=== PATIENT | female | born 1965 | race Caucasian/White ===

== ENCOUNTER → 2019-08-06 11:38 | Outpatient (CLI) | payer OTHER, SELFPAY ==
--- NOTE | ~2019-08-06 | MM_ITS ---
EXAMINATION: MM scrn maite implant BI w litzy HISTORY: Screening mammogram TECHNIQUE: Craniocaudal and mediolateral oblique 3-D tomosynthesis images with implant displacement a nd synthetic 2-D images were generated. Craniocaudal and mediolateral oblique views of the breasts wi thout implant displacement were obtained using full field digital mammography. CAD analysis was submi tted and interpreted. COMPARISON: 03/24/2017, 10/22/2015, 04/09/2014 BREAST PARENCHYMAL COMPOSITION: There are scattered areas of fibroglandular density. FINDINGS: The stable asymmetry is noted in the subareolar aspect of the right breast on the mediolate ral oblique view. There is no evidence of suspicious mass, calcification, or architectural distortion to suggest malignancy in either breast. There has been no suspicious interval change. IMPRESSION: 1. No mammographic evidence of malignancy. 2. Recommend routine screening mammography in one year. BI-RADS Category 2: Benign finding(s). Reviewed, dictated and finalized at location A.
== END ==
DX: Z12.31 Encounter for screening mammogram for malignant neoplasm of breast (principal)
CPT/HCPCS: 77063; 77067

== ENCOUNTER → 2020-03-03 13:02 | Outpatient (REF) | payer OTHER, SELFPAY | LOC: ANHLAB 13:02 | PROVIDERS: Visit Provider Nurse Practitioner | DX: D49.2 Neoplasm of unspecified behavior of bone, soft tissue, and skin (principal) | CPT/HCPCS: 88305; 88342 ==

== ENCOUNTER 2021-07-21 09:06 | Outpatient (CLI) | payer OTHER, SELFPAY ==
--- NOTE | ~2021-07-21 | US_ITS ---
US renal BI 07/21/2021 09:33 Procedure: Realtime transabdominal ultrasound of the kidneys and bladder. Indication: Hypertension Comparison: No prior studies for comparison. Findings: Renal echotexture is normal bilaterally without hydronephrosis, contour deforming mass or r enal calculus. The right kidney measures 9.4 cm and left kidney measures 10.3 cm. Bladder within nor mal limits. Impression: 1: Unremarkable renal ultrasound. No stones, masses or hydronephrosis. Reviewed, dictated and finalized at location B. ENTATION OPERATOR Impression: 1: Unremarkable renal ultrasound. No stones, masses or hydronephrosis.
== END 2021-07-21 09:07 | disposition home or self-care (01) ==
LOC: ANHIMG 09:08
PROVIDERS: PCP Internal Medicine; Visit Provider Internal Medicine Endocrinology, Diabetes & Metabolism
DX: I10 Essential (primary) hypertension (principal)
CPT/HCPCS: 76775

== ENCOUNTER 2021-07-22 08:37 | Outpatient (CLI) | payer OTHER, SELFPAY ==
--- NOTE | 2021-07-22 | ECHO_ITS ---
Patient Info Name: Richard Roque Age: 55 years : 1965 Gender: Female Ht: 64 in Wt: 149 lbs BSA: 1.76 m2 HR: 87 bpm BP: 133 / 98 mmHg Exam Date: 07/22/2021 9:26 AM Exam Location: [facility] Patient Status: Outpatient Admit Date: 07/22/2021 Staff Ordering Physician: SongYola MD Straight Line Press Setter: Sincere Rico, IRASEMA, RT Attending Provider: Yola Munoz MD Referring Physician: Shorty LIRIANO; Exam Type: CA echo doppler color flow Study Info Indications I10 - Essential (primary) hypertension Complete two-dimensional, color flow and Doppler transthoracic echocardiogram is performed. Strain analysis performed. Summary 1. Complete two-dimensional, color flow and Doppler transthoracic echocardiogram is performed. 2. Left ventricular systolic function is normal, estimated at 65-70%. 3. There is mildly increased left ventricular wall thickness. 4. The left ventricular diastolic function is normal. 5. There is mild tricuspid valve regurgitation. 6. There is hypo echoic structure measuring 11 by 10 cm seen that could represent very large liver cyst, large hiatal hernia or loop of bowel. Recommend further imaging for further characterization. Left Ventricle Left ventricular chamber dimension is normal. Left ventricular systolic function is normal, estimated at 65-70%. There is mildly increased left ventricular wall thickness. Left ventricular septal wall motion is normal. The left ventricular diastolic function is normal. Global longitudinal strain is normal at -20 %. Right Ventricle Right ventricular chamber dimension is normal. Right ventricular systolic function is normal. Left Atria Left atrial chamber dimension is normal. Right Atria Right atrial chamber dimension is normal. Atrial Septum Intact interatrial septum visualized by color flow imaging. Aortic Valve The aortic valve is trileaflet. There is no aortic valve sclerosis. There is no aortic valve stenosis. There is no aortic valve regurgitation. Pulmonic Valve The pulmonic valve is normal. There is no pulmonic valve stenosis. There is no pulmonic regurgitation. Mitral Valve The mitral valve has normal leaflets. There is no mitral valve stenosis. There is no mitral valve regurgitation. Tricuspid Valve The tricuspid valve leaflets are normal. There is no significant tricuspid valve stenosis. There is mild tricuspid valve regurgitation. No pulmonary hypertension, estimated pulmonary arterial systolic pressure is 36 mmHg. Pericardium/Pleural The pericardium appears normal. There is no pericardial effusion. Inferior Vena Cava Normal inferior vena cava with >50% collapse upon inspiration consistent with normal right atrial pressure, 5 mmHg. Aorta The aortic root size at the sinus of Valsalva is normal. The prox ascending aorta size is normal. Left Ventricular Outflow Tract Name Value Normal LVOT 2D LVOT Diameter 2.1 cm LVOT Doppler LVOT Peak Gradient 4 mmHg LVOT Mean Gradient 2 mmHg LVOT VTI 19 cm
== END 2021-07-22 08:38 | disposition home or self-care (01) ==
LOC: ANHCARD 08:39
PROVIDERS: PCP Internal Medicine; Visit Provider Internal Medicine Endocrinology, Diabetes & Metabolism
DX: I10 Essential (primary) hypertension (principal); I36.1 Nonrheumatic tricuspid (valve) insufficiency
CPT/HCPCS: 93306

== ENCOUNTER → 2021-10-13 12:52 | Outpatient (CLI) | payer OTHER, SELFPAY ==
--- NOTE | ~2021-10-13 | MMUS_ITS ---
EXAMINATION: MM diag maite implant BI w litzy, US breast RT limited HISTORY: Right breast pain and deformity of the right breast implant TECHNIQUE: Craniocaudal, mediolateral, and mediolateral oblique 3-D tomosynthesis images with implant displacement of the breasts were performed and synthetic 2-D images were generated. Craniocaudal, m ediolateral oblique, and mediolateral views of the breasts without implant displacement were obtained using full field digital mammography. CAD analysis was submitted and interpreted. High resolution li Vot[place]od right breast ultrasound was performed. COMPARISON: 08/06/2019, 03/24/2017, 10/22/2015 BREAST PARENCHYMAL COMPOSITION: There are scattered areas of fibroglandular density. FINDINGS: MAMMOGRAPHIC FINDINGS: There is no suspicious mass, calcification, or architectural distortion in either breast to suggest malignancy. There has been no suspicious interval change. No mammographic correlate is identified for the reported right breast pain. ULTRASOUND: There is no evidence of focal abnormal solid or cystic lesion in the vicinity of the patient's right breast pain. Incidental note is made of a small amount of intracapsular fluid surrounding the implant . IMPRESSION: 1. No specific mammographic or sonographic correlate is identified for the reported palpable abnormal ity of concern. Further evaluation at this time should be based on clinical assessment. Continued fol low-up physical examination is recommended. 2. Incidental note is made of small amount of intracapsular fluid surrounding the right breast implan t. Although finding is nonspecific, ultrasound-guided aspiration and pathologic analysis are recommen ded as this can be seen in the setting of breast implant associated anaplastic large cell lymphoma. BI-RADS category 4, suspicious findings. Reviewed, dictated and finalized at location A. IMPRESSION: 1. No specific mammographic or sonographic correlate is identified for the repo rted palpable abnormality of concern. Further evaluation at this time should be based on clinical assessment. Continued follow-up physical examination is lor mmended. 2. Incidental note is made of small amount of intracapsular fluid surrounding t he right breast implant. Although finding is nonspecific, ultrasound-guided asp iration and pathologic analysis are recommended as this can be seen in the sett ing of breast implant associated anaplastic large cell lymphoma. BI-RADS category 4, suspicious findings.
== END ==
DX: Z12.31 Encounter for screening mammogram for malignant neoplasm of breast (principal); T85.848D Pain due to other internal prosthetic devices, implants and grafts, subsequent encounter; R92.8 Other abnormal and inconclusive findings on diagnostic imaging of breast
CPT/HCPCS: 76642; 77062; 77066; G0279

== ENCOUNTER 2021-12-15 08:42 | Outpatient (CLI) | payer OTHER, SELFPAY ==
--- NOTE | 2021-12-15 08:56 | ECG_ITS ---
Measurements Intervals [place] Rate: 64 P: 35 WV: 130 QRS: 17 QRSD: 98 T: 39 QT: 415 QTc: 430 Interpretive Statements SINUS RHYTHM INCOMPLETE RIGHT BUNDLE BRANCH BLOCK DELAYED PRECORDIAL R/S TRANSITION BORDERLINE ECG Electronically Signed On 12-15-2021 22:22:16 CDT by Yfn Suazo D.O.
[2021-12-15 09:25] LABS: Anion Gap 8 mmol/L (8-16); Blood Urea Nitrogen 15 mg/dL (7-17); Calcium 9.9 mg/dL (8.4-10.2); Carbon Dioxide 31 mmol/L (22-30); Chloride 99 mmol/L (98-107); Estimated Glomerular Filt Rate > 60; Glucose 106 mg/dL (65-110); Potassium 4.2 mmol/L (3.4-5.0); Sodium 138 mmol/L (137-145)
== END 2021-12-15 08:43 | disposition home or self-care (01) ==
PROVIDERS: Anesthesiology; Visit Provider Surgery Plastic and Reconstructive Surgery
DX: Z79.899 Other long term (current) drug therapy (principal); Z01.818 Encounter for other preprocedural examination; I10 Essential (primary) hypertension; I45.10 Unspecified right bundle-branch block
CPT/HCPCS: 36415; 80048; 93005

== ENCOUNTER 2021-12-16 01:35 | Day surgery (SDC) | payer OTHER, SELFPAY ==
[2021-12-13 12:06] VITALS: BMI 25.7
--- NOTE | 2021-12-13 12:42 | PC.NURSE ---
Report to the Outpatient Waiting Room, entrance under the green pavilion located off [facility], at time 6:00 on date 12/16/21. OR Time: 7:30. - You and your visitor will be asked a series of questions to screen for COVID 19 for your protection. - Only one visitor is allowed at this time. - The patient visitor is requested to leave or wait in car when not with patient. - A mask is required within the hospital. Patients may have clear liquids (water, carbonated beverages, clear teas, apple juice) until 3 hours prior to surgery (4:30) with a maximum of 20 ounces. - No food from midnight until time of surgery Take the following medications with a SIP of water the morning of surgery: TIROSINT Medications to discontinue per physician: N/A Date to take last dose: N/A Please no make-up, nail occitan, hairspray, perfume, deodorant, or body powder the day of surgery. No jewelry (including any body piercings) or valuables the day of surgery, leave them at home. Please take a shower or bath the night before, or the morning of, surgery with an antibacterial soap. Wear comfortable, loose fitting clothing. - Jewelry must be removed prior to entering the operating room. Rings and piercings that are not removed may be cut off. - The hospital will not accept responsibility for valuables. - Please leave all valuables, including medications, at home the day of surgery. If you are going home after surgery, a licensed concrete pile driver operator must drive you home. - NO public transportation without another adult. - We recommend that an adult stay with you for 24 hours following discharge. - We also recommend that you do not drive, make important decision, drink alcoholic beverages, or take any drugs that were not prescribed by your health care provider for at least 24 hours after your discharge time. Follow any additional instructions given to you from your surgeon. If you or anyone in your household have experienced Covid symptoms in the past week, please notify your surgeon or the nurse liaison at the phone number below for possible testing. Telephone instructions given to PT - GERSON RESENDIZ and asked if any additional questions and then verbalized understanding. Patient advised to call surgeon office or pre surgery nurse liaison [phone] if any additional questions.
--- NOTE | 2021-12-15 13:17 | P.PNAN_ITS ---
Anes - Initial Pre Proc Eval Procedure: Operation Date: 12/16/21 07:30 Proposed Procedures p Bilateral Breast Implant Exchange - Feliciano Dong MD Date/Time: 12/15/21 13:17 Surgeon: Feliciano Dong MD Pre Op Diagnosis: Hx Breast Augumentation, Breast Ptosis, Bilateral Patient Data Age: 56 Gender: F Height: 1.63 m Weight: 68 kg Allergies Allergy/AdvReac Type Severity Reaction Status Date / Time No Known Allergies Allergy Unknown Verified 12/16/21 06:23 Home Medications Medication Instructions Recorded Confirmed Type chlorthalidone 25 mg tablet 25 mg PO DAILY 10/11/21 12/16/21 History levothyroxine 88 mcg capsule 88 mcg PO DAILY 10/11/21 12/16/21 History (Tirosint) losartan 50 mg tablet 50 mg PO DAILY 10/11/21 12/16/21 History spironolactone 25 mg tablet 25 mg PO DAILY 10/11/21 12/16/21 History docusate sodium 100 mg capsule 100 mg PO DAILY #14 caps 12/01/21 12/13/21 Rx (Colace) ondansetron HCl 4 mg tablet 4 mg PO Q8H #21 tabs 12/01/21 12/13/21 Rx hydrocodone 5 mg-acetaminophen 325 1 tablet PO Q6H PRN pain #30 tabs 12/02/21 12/13/21 Rx mg tablet Patient hx anesthesia problems: none Family hx anesthesia problems: none Results Review: All pre-operative results and documents have been reviewed as part of the pre- operative evaluation. [facility] Past Medical History Medical History (Updated 12/15/21 @ 13:18 by Brown King MD) Cervical vertebral fusion HTN (hypertension) Hypothyroidism Surgical History Surgical History History of back surgery foraminotomy History of breast augmentation History of bunionectomy Social History Social History Smoking status: Unknown if ever smoked Alcohol intake: never Drinks per week: 3 Substance use: never Substance use type: does not use Living arrangements: with family Gender identity (if verbalized by the patient): Female Spiritual care concerns: No Anes - Eval Final PreProcedure Day of Procedure 12/15/21 13:17 Patient weight: normal Heart: regular rate and rhythm Lungs: clear to auscultation and normal air movement Airway: Mallampati scale class II Neurological: alert and oriented Last oral intake: >/= 8 hours ASA classification: II Emergent: no Anesthetic plan: proceed Anesthesia type and monitoring: general LMA Results Review: All pre-operative results and documents have been reviewed as part of the pre- operative evaluation. Informed Consent: The patient's anesthetic plan and its attendant risks and benefits were discussed with the patient/family/POA. Questions were solicited and answers provided to the satisfaction of the patient/family/POA.
[2021-12-16] VITALS (7 sets, daily range): BP systolic 107–137; BP diastolic 61–84; PULSE 63–94; RESP 12–20; TEMP 36.3–36.4; O2SAT 96–100
[2021-12-16] MEDS: LACTATED RINGERS 1,000 ML 30 ML IV CONT ×2 (06:55→08:57)
--- NOTE | 2021-12-16 07:19 | WPDHPUPDATE1 ---
History and Physical Update Update Date/Time: 12/16/21 07:19 History and Physical has been reviewed, including an updated exam of the patient. There are NO changes in the patient's condition. Risks, benefits, and alternatives have been discussed and questions answered. Patient agrees to proceed with procedure.
[2021-12-16] MEDS: ceFAZolin 2 GM/D5W 50 ML 2 GM/50 ML BAG IVPB (07:26)
[2021-12-16] MEDS: TRANEXAMIC ACID 1,000MG/ISO100 1,000 MG/100 ML BAG 200 MG IVPB (07:37)
[2021-12-16] MEDS: BUPIVACAINE HCL 0.25% PF 30 ML VIAL INFILTRATE (07:40)
[2021-12-16] MEDS: LIDO 1%/EPINEPHRINE 1:100,000 10 ML VIAL 30 ML INFILTRATE (07:40)
[2021-12-16] MEDS: NACL 0.9% IRRIG POUR BOTTLE 900 ML, GENTAMICIN SULFATE INJ 160 MG, ceFAZolin 2 GM, POVI... IRRIGATION (08:18)
--- NOTE | 2021-12-16 08:50 | W.PM.PROC2 ---
Procedure Note - Detailed Date of Procedure 12/16/21 Pre-op Diagnosis Hx Breast Augumentation, Breast Ptosis, Bilateral Post-op Diagnosis Same Procedure Performed 1. Bilateral implant exchange. 2. Bilateral capsulectomy Surgeon Feliciano Dong MD Anesthesia General Findings Bilateral textured silicone implants removed. The right did have a small rupture as identified on the in office ultrasound. Left was intact. No worrisome features. New implants bilateral natural Inspira SoftTouch 350 cc. Right: REF SSL-350 SN [id number] Left: REF# [id number] SN [id number] Description of Procedure Preoperatively the risks, benefits, alternatives were discussed in extensive detail. I want them to be very realistic about the risks involved as well as expectations. We had a lengthy discussion about FDA recommendations of textured implants. They understand the differences between textured and smooth implants in the limitations of smooth implants. They understand this does not guarantee no risk of ALCL in the future and I can never guarantee complete removal of the capsule or silicone material. She does not wish to proceed with mastopexy and would do this in the future if she desires at her expense. She would like proceed with the exact same implants. I made sure answered every question to her and her family satisfaction. Consent obtained. She voiced clear understanding. She would like proceed. She was taken to the operating room placed supine on the operating room table. Anesthesia provided by anesthesiology. Prepped and draped in a standard sterile fashion. Surgical time-out was taken. 1% lidocaine and 0.25% Marcaine with epinephrine was used to provide a field block. A 15 blade used to excise the previous IMF scar. Dissection was continued down until the capsule was identified elevated around this capsule. These were sent to pathology. On the right there was evidence of a rupture with minimal silicone spillage on the left this was intact. I copiously irrigated with a total of 3 L of saline solution on TUR tubing. Verified a strict hemostasis. She had desired to stay in the same plane with the same size implants. Betadine antibiotic solution was used to irrigate the pocket. Throughout the procedure she had Tegaderm nipple Plascencia. Gloves were changed. I used a Ghotra funnel and the implants were introduced into the pocket. This was closed with 2-0 Vicryl followed by 3-0 Monocryl in a running subcuticular 4-0 Monocryl and tissue glue. She was woken taken to the PACU without difficulty. All instrument sponge counts were correct at the end of the case. Estimated Blood Loss 50 Drains No Packing No Pathology Yes (bilateral implant capsules) Complications No immediate complications Condition Stable Disposition PACU
[2021-12-16] MEDS: fentaNYL CITRATE INJ (*CRX) 100 MCG/2 ML VIAL 25 MCG IV PUSH ×4 (09:03→09:17)
[2021-12-16] MEDS: oxyCODONE HCL (*CRX) 5 MG TAB IR PO (10:04)
== END 2021-12-16 10:45 | disposition home or self-care (01) ==
PROVIDERS: Visit Provider Surgery Plastic and Reconstructive Surgery
PROC: (CPT 19371; principal; 2021-12-16 07:30)
DX: T85.41XA Breakdown (mechanical) of breast prosthesis and implant, initial encounter (principal); N64.81 Ptosis of breast; Y83.8 Other surgical procedures as the cause of abnormal reaction of the patient, or of later complication, without mention of misadventure at the time of the procedure; I10 Essential (primary) hypertension; E03.9 Hypothyroidism, unspecified; Z98.1 Arthrodesis status; Z79.891 Long term (current) use of opiate analgesic
CPT/HCPCS: 19371; 19325; 88304; A9270; J0690; J1100; J1580; J2250; J2405; J2704; J3010; J7120

== ENCOUNTER → 2023-01-24 10:57 | Outpatient (CLI) | payer OTHER, SELFPAY ==
--- NOTE | ~2023-01-24 | XR_ITS ---
XR hip RT min 2V DATE: 01/24/2023 11:15 INDICATION: Right hip pain TECHNIQUE: AP and lateral views COMPARISON: None FINDINGS: No fracture or dislocation, avascular necrosis or bone destruction. The right hip joint spa ce is well preserved. The pubic symphysis and sacroiliac joints are intact. IMPRESSION: Negative right hip Reviewed, dictated and finalized at location L. IMPRESSION: Negative right hip
== END ==
DX: M25.551 Pain in right hip (principal)
CPT/HCPCS: 73502

== ENCOUNTER → 2023-02-06 10:30 | Outpatient (CLI) | payer OTHER, SELFPAY ==
--- NOTE | ~2023-02-06 | MM_ITS ---
EXAMINATION: MM scrn maite implant BI w litzy HISTORY: Screening mammogram TECHNIQUE: Craniocaudal and mediolateral oblique 3-D tomosynthesis images with implant displacement a nd synthetic 2-D images were generated. Craniocaudal and mediolateral oblique views of the breasts wi thout implant displacement were obtained using full field digital mammography. CAD analysis was submi tted and interpreted. COMPARISON: 10/13/2021 bilateral diagnostic implant mammogram and limited right breast ultrasound 08/06/2019, 03/24/2017 bilateral screening mammogram examinations BREAST PARENCHYMAL COMPOSITION: The breasts are heterogeneously dense, which may obscure small masses . FINDINGS: Status post bilateral augmentation mammoplasty. There is no evidence of suspicious mass, ca lcification, or architectural distortion to suggest malignancy in either breast. There has been no toro spicious interval change. IMPRESSION: 1. No mammographic evidence of malignancy. 2. Recommend routine screening mammography in one year. BI-RADS Category 1: Negative Reviewed, dictated and finalized at location A.
== END ==
DX: Z12.31 Encounter for screening mammogram for malignant neoplasm of breast (principal)
CPT/HCPCS: 77063; 77067

== ENCOUNTER 2023-04-06 10:23 | Outpatient (CLI) | payer OTHER, SELFPAY ==
--- NOTE | ~2023-04-06 | XR_ITS ---
Right foot Technique: AP, oblique, and lateral views were obtained. Clinical History: Heel pain Findings: No acute fracture or dislocation is seen. Possible prior first metatarsal osteotomy with de generative change of the sesamoid metatarsal articulations. Soft tissues are unremarkable. Impression: No acute abnormality. Possible prior first metatarsal osteotomy with degenerative change of the sesamoid metatarsal articul ations. Reviewed, dictated and finalized at location M. L STAKER Impression: No acute abnormality. Possible prior first metatarsal osteotomy with degenerative change of the sesam oid metatarsal articulations.
--- NOTE | ~2023-04-06 | XR_ITS ---
2 views of the calcaneus CLINICAL HISTORY: Calcaneal pain FINDINGS: No fracture or dislocation seen. Joint spaces are intact. Soft tissues are unremarkable. IMPRESSION: Unremarkable exam. Reviewed, dictated and finalized at location M. R MACHINE BACKTENDER IMPRESSION: Unremarkable exam.
--- NOTE | ~2023-04-06 | XR_ITS ---
Right ankle Technique: AP, oblique, and lateral views were obtained. Clinical History: Pain Findings: No acute fracture or dislocation is seen. Osseous alignment is anatomic. Ankle mortise and other visualized joint spaces are preserved. Soft tissues are otherwise unremarkable. Impression: Unremarkable right ankle. Reviewed, dictated and finalized at location . COMMISSIONER Impression: Unremarkable right ankle.
== END 2023-04-06 10:24 ==
LOC: MICIMG 10:26
DX: M79.671 Pain in right foot (principal)
CPT/HCPCS: 73610; 73630; 73650